=== PATIENT | male | born 1980 | race Caucasian/White ===

== ENCOUNTER 2022-03-22 17:27 | Emergency (ER) | payer OTHER, SELFPAY ==
--- NOTE | ~2022-03-22 | CT_ITS ---
EXAMINATION: CTA CHEST AND ABDOMEN. CT ABDOMEN PELVIS WITHOUT CONTRAST. CLINICAL INFORMATION: Aortic dissection. COMPARISON: None TECHNIQUE: 5 minutes thin axial and reformatted 3 minutes thin sagittal coronal images of abdomen pelvis were obtained. DLP 684. Subsequently CT angiogram of chest, abdomen pelvis were obtained following rapid IV administration of 85 mL Omnipaque 350. DLP 706. FINDINGS: NON CTA ABDOMEN AND PELVIS: There is a left lower lobe chronic atelectasis or scarring with a small left pleural effusion. The liver is normal size, shape but diffusely attenuated. There is a focal fatty sparing in the right hepatic lobe. No focal lesion or intrahepatic ductal dilatation seen. The gallbladder appears unremarkable. Visualized spleen, pancreas and adrenal glands are unremarkable. No radiopaque renal calculi or hydronephrosis seen. The abdominal wall appears unremarkable. There is scattered stool and gas seen throughout the colon without any significant distention. The small bowel loops are unremarkable. Appendix is not seen. Imaging to the pelvis reveals unremarkable urinary bladder. There is no free fluid or free air. The prostate gland is normal size. No gross bony abnormality. CTA CHEST: There is good opacification of ascending and thoracic arch without any aneurysm or dissection. Normal three-vessel branching of the arch is noted. There is aneurysmal dilatation of distal abdominal aorta. The proximal descending thoracic aorta measures 3.7 x 3.4 cm on axial image 23/10, the distal thoracic aorta measures 5.7 x 6.5 cm with circumferential thrombus. The patent lumen at the same level measures 4.5 x 4.5 cm. The aneurysm extends below the diaphragm in the proximal abdomen and measures 3.4 x 3.1 cm. There is no aortic dissection visualized. There is a pulsation artifact seen in the proximal ascending aorta. There is no pericardial effusion. The central trachea and the bronchi widely patent. The thyroid lobes are symmetrical and normal. No abnormal size mediastinal or hilar lymph nodes seen. The pulmonary artery is patent without any emboli. The lungs are well-inflated but clear of acute pneumonic process. There is bilateral basilar atelectatic changes with a small left pleural effusion. CTA abdomen: The mid and distal abdominal aorta are normal caliber. The mid and the distal abdominal aorta measures 2 cm. The proximal abdominal aorta is dilated measuring 3.4 x 3.3 cm. The origins of celiac, superior mesenteric and solitary bilateral renal arteries are widely patent. The RUPERTO is both common, external and internal iliac arteries are widely patent and normal caliber. Non-CTA abdomen and pelvis: Postcontrast the liver is diffusely attenuated with focal fatty sparing in the right hepatic lobe axial image 65/10 measuring approximately 2.0 x 1.5 cm. No focal enhancing lesion seen. Enhanced liver, pancreas, kidneys are unremarkable. There is nonenhancing upper pole 3 cm left renal cyst. No abnormal lymph nodes seen. Bone windows reveal no aggressive lytic or sclerotic process. 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 The arch and the ascending aorta are of normal caliber. No dissection seen. Widely patent preop tree. Small left pleural effusion with compressive atelectasis left lung base. Diffuse hepatic steatosis with areas of focal fatty sparing in the right hepatic lobe adjacent to the gallbladder. Left renal cyst but no radiopaque renal calculi.
--- NOTE | ~2022-03-22 | CT_ITS ---
EXAMINATION: CT ANGIOGRAM CHEST CT/CT angio chest aorta FINDINGS AND IMPRESSION: CTA chest was dictated with CT abdomen pelvis without contrast and CTA abdomen and pelvis exam. guidelines were followed.
--- NOTE | ~2022-03-22 | XR_ITS ---
EXAMINATION: XR CHEST CLINICAL INFORMATION: Chest pain COMPARISON: Chest x-ray 10/27/2018 TECHNIQUE: Frontal view of the chest was obtained. FINDINGS: No significant abnormality is noted involving the heart, lungs, mediastinum, bony thorax or soft tissues. XR/XR chest 1V IMPRESSION: Unremarkable examination.
--- NOTE | 2022-03-22 17:29 | ECG_ITS ---
Test Reason : CHEST PAIN Blood Pressure : / mmHG Vent. Rate : 087 BPM Atrial Rate : 087 BPM P-R Int : 152 ms QRS Dur : 098 ms QT Int : 370 ms P-R-T Axes : 037 -12 019 degrees QTc Int : 445 ms Normal sinus rhythm Nonspecific T wave abnormality Abnormal ECG No previous ECGs available Referred By: Generic ED Physician Electronically Signed By:PANCHITO DELEON MD
[2022-03-22 17:38] VITALS: BP 135/93; PULSE 97; RESP 18; TEMP 36.6; O2SAT 97; BMI 28.8
[2022-03-22 17:46] LABS: Basophils Absolute Auto 0.1 X10*3/uL (0.0-0.2); Basophils Percent Auto 0.4 % (0-2); Eosinophils Percent Auto 0.3 % (0-4); Hematocrit 43.2 % (42.0-52.0); Imm Gran Abs Auto 0.05 X10*3/uL (0.00-0.03); Imm Gran Pct Auto 0.4 % (0.0-0.4); Lymphocytes Absolute Auto 2.1 X10*3/uL (1.2-4.9); MANUAL DIFF FLAG SCAN; Mean Corpuscular HGB Conc 34.7 g/dl (31.0-36.0); Mean Corpuscular Hemoglobin 31.3 pg (27.0-33.0); Mean Corpuscular Volume 90.2 fL (80.0-98.0); Mean Platelet Volume 8.9 fL (9.4-12.4); Monocytes Absolute Auto 1.8 X10*3/uL (0.1-1.2); Neutrophils Absolute Auto 9.9 x10*3/uL (2.0-8.3); Neutrophils Percent Auto 70.9 % (45-73); Platelet Count 407 X10*3/uL (160-400); Red Blood Count 4.79 X10*6/uL (4.60-5.80); Red Cell Distribution Width 12.2 % (11.0-16.0); SCAN SMEAR FLAG 1; White Blood Count 13.9 X10*3/uL (4.8-10.8)
[2022-03-22 17:59] LABS: Anion Gap 12 (12-20); Blood Urea Nitrogen 10 mg/dL (9-16); Carbon Dioxide 30 mmol/L (22-29); Chloride 98 mmol/L (96-108); Creatinine Clr Calc Pharmacy 105.7; Estimated Glomerular Filt Rate > 60; Glucose Random 108 mg/dL (60-115); Potassium 4.1 mmol/L (3.3-5.1); Sodium 136 mmol/L (135-145)
--- NOTE | 2022-03-22 18:02 | ED.CHESTPAIN ---
HPI - Chest Pain General Chief Complaint: Chest Pain Stated Complaint: Chest pain/SOB/Abd pain Time Seen by Provider: 03/22/22 18:02 Source: patient Mode of arrival: ambulatory Limitations: no limitations History of Present Illness HPI narrative: Patient with no significant past medical history except had a complicated appendectomy few years ago comes here for pain in epigastric area for last 3 days radiating to the back had 1 time vomiting and diarrhea yesterday pain is getting worse whenever he eats something pain gets further worse. Feels abdomen is slightly bloated Related Data Allergies Allergy/AdvReac Type Severity Reaction Status Date / Time No Known Drug Allergies Allergy Unknown UNKNOWN Verified 03/22/22 17:42 [NO KNOWN DRUG ALLERGIES] SOFT METALS Allergy Mild RASH Uncoded 03/22/22 17:42 Review of Systems Review of Systems: Yes all other systems are reviewed and are negative [facility] Past Medical History Medical History No known health problems Surgical History History of appendectomy Social History Social History Alcohol intake: never Smoked in Last 30 Days: No Advance Directives: No Advance Directives Information Provided: No Physical Exam Vital Signs: Vital Signs: Last Vital Signs Temp 98.0 F 03/22/22 19:30 Pulse 85 03/22/22 19:58 Resp 18 03/22/22 19:58 BP 135/76 03/22/22 19:58 Pulse Ox 100 03/22/22 19:58 BMI result Body Mass Index 28.8 Appearance: Alert. Oriented X3. Mild distress thin built Eyes: No pallor icterus ENT: Pharynx normal. Oral Mucosa moist Neck: Normal inspection. Neck supple. CVS: Normal heart rate and rhythm. Pulses normal. Respiratory: No respiratory distress. Equal air entry bilateral, no wheezing/rales/rhonchi Abdomen: Soft , tenderness in epigastric area no rebound tenderness or guarding Bowel sounds are present, no mass palpable, no CVA tenderness Skin: Skin warm and dry. Normal skin color. Normal skin turgor. Extremities: No lower extremity edema. No calf tenderness Neuro: Oriented X 3. No motor deficit. 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 Kaur cardiothoracic surgery at [facility] accepted the patient Patient blood pressure on arrival was 139/93 received morphine IV and Pepcid blood pressure decreased to 129/64 just now patient's blood pressure increased to 135/78 with heart rate of 80 now will give Lopressor 5 mg IV Lab Data Attestation: I reviewed the patient's lab results. Result diagrams: 03/22/22 17:39 03/22/22 17:39 Labs: Lab Results 03/22/22 03/22/22 03/22/22 Range/Units 17:39 17:39 17:39 WBC 13.9 H (4.8-10.8) X10*3/uL RBC 4.79 (4.60-5.80) X10*6/uL Hgb 15.0 (14.0-18.0) g/dl Hct 43.2 (42.0-52.0) % MCV 90.2 (80.0-98.0) fL MCH 31.3 (27.0-33.0) pg MCHC 34.7 (31.0-36.0) g/dl RDW 12.2 (11.0-16.0) % Plt Count 407 H (160-400) X10*3/uL MPV 8.9 L (9.4-12.4) fL Immature Gran % (Auto) 0.4 (0.0-0.4) % Neut % (Auto) 70.9 (45-73) % Lymph % (Auto) 15.0 L (20-40) % [place] % (Auto) 13.0 H (2-11) % Eos % (Auto) 0.3 (0-4) % Baso % (Auto) 0.4 (0-2) % Lymph # (Auto) 2.1 (1.2-4.9) X10*3/uL [place] # (Auto) 1.8 H (0.1-1.2) X10*3/uL Eos # (Auto) 0.0 (0.0-0.4) X10*3/uL Baso # (Auto) 0.1 (0.0-0.2) X10*3/uL Abs Immat Gran (auto) 0.05 H (0.00-0.03) X10*3/uL Absolute Neuts (auto) 9.9 H (2.0-8.3) x10*3/uL Absolute Nucleated RBC 0.000 (0.0-0.012) X10*3/uL Nucleated RBC % (auto) 0.0 (0.0-0.2) /100WBC Smear Tech's Comments VERIFIED Sodium 136 (135-145) mmol/L Potassium 4.1 (3.3-5.1) mmol/L Chloride 98 (96-108) mmol/L Carbon Dioxide 30 H (22-29) mmol/L Anion Gap 12 (12-20) BUN 10 (9-16) mg/dL Creatinine 1.13 (0.5-1.4) mg/dL Estim Creat Clear Calc 105.7 Estimated GFR > 60 Random Glucose 108 (60-115) mg/dL Calcium 10.0 (8.4-10.2) mg/dL Total Bilirubin 1.6 H (0.0-1.0) mg/dL Direct Bilirubin 0.7 H (0.0-0.5) mg/dL AST 25 (5-37) U/L ALT 58 H (0-40) U/L Alkaline Phosphatase 45 (39-117) U/L Troponin I High Sens 3.5 (<3.5-35.0) ng/L Total Protein 8.3 H (6.5-8.0) g/dL Albumin 4.6 (3.5-5.0) g/dL Lipase 24 (8-78) U/L COVID-19 (NAYA) (Negative) COVID-19 Clin Com 03/22/22 Range/Units 19:28 WBC (4.8-10.8) X10*3/uL RBC (4.60-5.80) X10*6/uL Hgb (14.0-18.0) g/dl Hct (42.0-52.0) % MCV (80.0-98.0) fL MCH (27.0-33.0) pg MCHC (31.0-36.0) g/dl RDW (11.0-16.0) % Plt Count (160-400) X10*3/uL MPV (9.4-12.4) fL Immature Gran % (Auto) (0.0-0.4) % Neut % (Auto) (45-73) % Lymph % (Auto) (20-40) % [place] % (Auto) (2-11) % Eos % (Auto) (0-4) % Baso % (Auto) (0-2) % Lymph # (Auto) (1.2-4.9) X10*3/uL [place] # (Auto) (0.1-1.2) X10*3/uL Eos # (Auto) (0.0-0.4) X10*3/uL Baso # (Auto) (0.0-0.2) X10*3/uL Abs Immat Gran (auto) (0.00-0.03) X10*3/uL Absolute Neuts (auto) (2.0-8.3) x10*3/uL Absolute Nucleated RBC (0.0-0.012) X10*3/uL Nucleated RBC % (auto) (0.0-0.2) /100WBC Smear Tech's Comments Sodium (135-145) mmol/L Potassium (3.3-5.1) mmol/L Chloride (96-108) mmol/L Carbon Dioxide (22-29) mmol/L Anion Gap (12-20) BUN (9-16) mg/dL Creatinine (0.5-1.4) mg/dL Estim Creat Clear Calc Estimated GFR Random Glucose (60-115) mg/dL Calcium (8.4-10.2) mg/dL Total Bilirubin (0.0-1.0) mg/dL Direct Bilirubin (0.0-0.5) mg/dL AST (5-37) U/L ALT (0-40) U/L Alkaline Phosphatase (39-117) U/L Troponin I High Sens (<3.5-35.0) ng/L Total Protein (6.5-8.0) g/dL Albumin (3.5-5.0) g/dL Lipase (8-78) U/L COVID-19 (NAYA) Negative (Negative) COVID-19 Clin Com See Note Imaging Data CT scan - chest: Attestation: I personally reviewed and interpreted this imaging study as follows: Radiologist's impression: EXAMINATION: CTA CHEST AND ABDOMEN. CT ABDOMEN PELVIS WITHOUT CONTRAST. CLINICAL INFORMATION: Aortic dissection.? COMPARISON: None? TECHNIQUE: 5 minutes thin axial and reformatted 3 minutes thin sagittal coronal images of abdomen pelvis were obtained. DLP 684. Subsequently CT angiogram of chest, abdomen pelvis were obtained following rapid IV administration of 85 mL Omnipaque 350. DLP 706.? FINDINGS: NON CTA ABDOMEN AND PELVIS: There is a left lower lobe chronic atelectasis or scarring with a small left pleural effusion. The liver is normal size, shape but diffusely attenuated. There is a focal fatty sparing in the right hepatic lobe. No focal lesion or intrahepatic ductal dilatation seen. The gallbladder appears unremarkable. Visualized spleen, pancreas and adrenal glands are unremarkable. No radiopaque renal calculi or hydronephrosis seen. The abdominal wall appears unremarkable. There is scattered stool and gas seen throughout the colon without any significant distention. The small bowel loops are unremarkable. Appendix is not seen. Imaging to the pelvis reveals unremarkable urinary bladder. There is no free fluid or free air. The prostate gland is normal size. No gross bony abnormality. CTA CHEST: There is good opacification of ascending and thoracic arch without any aneurysm or dissection. Normal three-vessel branching of the arch is noted. There is aneurysmal dilatation of distal abdominal aorta. The proximal descending thoracic aorta measures 3.7 x 3.4 cm on axial image 23/10, the distal thoracic aorta measures 5.7 x 6.5 cm with circumferential thrombus. The patent lumen at the same level measures 4.5 x 4.5 cm. The aneurysm extends below the diaphragm in the proximal abdomen and measures 3.4 x 3.1 cm. There is no aortic dissection visualized. There is a pulsation artifact seen in the proximal ascending aorta. There is no pericardial effusion. The central trachea and the bronchi widely patent. The thyroid lobes are symmetrical and normal. No abnormal size mediastinal or hilar lymph nodes seen. The pulmonary artery is patent without any emboli. The lungs are well-inflated but clear of acute pneumonic process. There is bilateral basilar atelectatic changes with a small left pleural effusion. CTA abdomen: The mid and distal abdominal aorta are normal caliber. The mid and the distal abdominal aorta measures 2 cm. The proximal abdominal aorta is dilated measuring 3.4 x 3.3 cm. The origins of celiac, superior mesenteric and solitary bilateral renal arteries are widely patent. The RUPERTO is both common, external and internal iliac arteries are widely patent and normal caliber. Non-CTA abdomen and pelvis: Postcontrast the liver is diffusely attenuated with focal fatty sparing in the right hepatic lobe axial image 65/10 measuring approximately 2.0 x 1.5 cm. No focal enhancing lesion seen. Enhanced liver, pancreas, kidneys are unremarkable. There is? nonenhancing upper pole 3 cm left renal cyst. No abnormal lymph nodes seen. Bone windows reveal no aggressive lytic or sclerotic process. 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 The arch and the ascending aorta are of normal caliber. No dissection seen. ? Widely patent preop tree. ? Small left pleural effusion with compressive atelectasis left lung base. ? Diffuse hepatic steatosis with areas of focal fatty sparing in the right hepatic lobe adjacent to the gallbladder. Left renal cyst but no radiopaque renal calculi. ECG Data ECG #1: Attestation: I personally reviewed and interpreted this ECG as follows: Interpretation: Normal sinus rhythm nonspecific ST T-wave changes heart rate 87 beats per minute no acute ischemic changes Critical Care Time Critical Care Time Critical Care Time: Yes Total Critical Care Time: 55 Attestation: I spent 55 minutes of critical care, with interventions, assessments, speaking to patient, consultants, and family. Discharge Plan Discharge Clinical Impression: Aortic dissection, thoracic Patient Disposition: [facility] Transfer Details: To [facility] Under Dr Natasha HUGHES [facility] Interventions: Acute Care Transfer Worksheet (ED) Last Done: 03/22/22 20:04 Discharge Date/Time: 03/22/22 20:05
[2022-03-22 18:04] LABS: SLIDE REVIEW VERIFIED
[2022-03-22 18:05] LABS: Troponin-I High Sensitivity 3.5 ng/L (<3.5-35.0)
[2022-03-22 18:22] LABS: Alanine Aminotransferase 58 U/L (0-40); Albumin Level 4.6 g/dL (3.5-5.0); Alkaline Phosphatase 45 U/L (39-117); Aspartate Amino Transferase 25 U/L (5-37); Bilirubin Direct 0.7 mg/dL (0.0-0.5); Bilirubin Total 1.6 mg/dL (0.0-1.0); Lipase 24 U/L (8-78); Total Protein 8.3 g/dL (6.5-8.0)
[2022-03-22] MEDS: 0.9 % Sodium Chloride 1,000 ML 999 ML IV ×2 (18:28→18:29)
[2022-03-22] MEDS: ondansetron HCL 4 MG/2 ML VIAL IVPUSH (18:31)
[2022-03-22] MEDS: Famotidine/PF 20 MG/2 ML VIAL IVPUSH (18:31)
[2022-03-22] MEDS: Morphine Sulfate 4 MG/ML CARTRIDGE IVPUSH (18:32)
[2022-03-22 19:02] VITALS: BP 126/80; PULSE 77; PULSE 80; RESP 18; TEMP 37; O2SAT 97
--- NOTE | 2022-03-22 19:15 | PC.NURSE ---
call out to [facility] transfer line @[id number]
[2022-03-22] MEDS: iohexoL 350 MG/ML 100 ML INFUS..BTL IV (19:28)
--- NOTE | 2022-03-22 19:28 | PC.NURSE ---
belongings inventories. Pt has $122 in [place]. pt has clothing and car keys. all belongings inventoried and counted on paper sheet. Kumar ERT to witnessed.
[2022-03-22 19:30] VITALS: BP 129/64; PULSE 82; RESP 14; TEMP 36.7; O2SAT 97
--- NOTE | 2022-03-22 19:33 | PC.NURSE ---
Per patient sister Debbie, information may be given. Sister is next of Kin. Name; Debbie Cox ([phone])
[2022-03-22] MEDS: Metoprolol Tartrate 5 MG/5 ML VIAL IVPUSH (19:48)
[2022-03-22 19:58] VITALS: BP 135/76; PULSE 85; RESP 18; O2SAT 100
--- NOTE | 2022-03-22 19:58 | PC.NURSE ---
[facility] call at 1954 room assignment given M3 ROOM 3
[2022-03-22 20:00] LABS: COVID-19 Test Negative (Negative); IDNOW Serial# 55D5AD1C
== END 2022-03-22 20:05 | disposition short-term general hospital (02) ==
PROVIDERS: Emergency Provider Internal Medicine
DX: I71.01 Dissection of thoracic aorta (principal); R07.89 Other chest pain; R06.02 Shortness of breath; Z20.822 Contact with and (suspected) exposure to COVID-19; Z79.899 Other long term (current) drug therapy
CPT/HCPCS: 36415; 71045; 71275; 74174; 74176; 80048; 80076; 83690; 84484; 85025; 87635; 93005; 96361; 96374; 96375; 99285; 99291; J2270; J2405; Q9967